=== PATIENT | female | born 1990 | race African-American/Black ===

== ENCOUNTER → 2020-03-17 | Outpatient (REF) | payer BC | LOC: M LAB REF 15:48 | PROVIDERS: ATTEND Nurse Practitioner Family | DX: R30.0 Dysuria (principal); Z11.3 Encounter for screening for infections with a predominantly sexual mode of transmission ==

== ENCOUNTER → 2020-04-30 | Outpatient (CLI) | payer BC | LOC: M LAB 13:21 | DX: Z30.09 Encounter for other general counseling and advice on contraception (principal) ==

== ENCOUNTER → 2020-05-07 | Outpatient (REF) | payer BC ==
[2020-05-07 14:02] LABS: HEMATOCRIT 38.6 % (36.0-47.0); HEMOGLOBIN 12.5 g/dl (12.0-15.5); MEAN CORPUSCULAR HGB CONC 32.4 g/dl (32.0-36.5); MEAN CORPUSCULAR VOLUME 86.5 fl (80.0-96.0); PLATELET COUNT, AUTOMATED 327 10^3/uL (150-450); RED BLOOD COUNT 4.46 10^6/uL (4.00-5.40); WHITE BLOOD COUNT 11.3 10^3/uL (4.0-10.0)
[2020-05-07 14:28] LABS: HCG, SERUM QUANTITATIVE 83 MIU/ML
[2020-05-07 15:27] LABS: PROGESTERONE 57.67 NG/ML
[2020-05-07 16:05] LABS: HEPATITIS C VIRUS ABY INDEX 0.2 INDEX (<0.8)
[2020-05-07 16:07] LABS: HIV 1&2 SCREEN CENTAUR NEGATIVE (NEGATIVE)
== END ==
LOC: M LAB REF 13:32
PROVIDERS: ATTEND Obstetrics & Gynecology
DX: Z32.01 Encounter for pregnancy test, result positive (principal); O36.80X0 Pregnancy with inconclusive fetal viability, not applicable or unspecified; Z3A.00 Weeks of gestation of pregnancy not specified

== ENCOUNTER → 2020-05-11 | Outpatient (REF) | payer BC | LOC: M LAB REF 16:13 | PROVIDERS: ATTEND Obstetrics & Gynecology | DX: O36.80X0 Pregnancy with inconclusive fetal viability, not applicable or unspecified (principal); Z3A.00 Weeks of gestation of pregnancy not specified ==

== ENCOUNTER → 2020-05-13 | Outpatient (CLI) | payer BC ==
--- NOTE | 2020-05-13 16:24 | REP ---
INDICATION: DATING/VIABILITY. COMPARISON: None. TECHNIQUE: Transabdominal and transvaginal scanning. FINDINGS: Transvaginal imaging demonstrates a small gestational sac in the endometrium. By mean sac size diameter of 3 mm, this would correspond with 4 week 5 day gestational. No embryonic pole or yolk sac is visible. A trace amount of free fluid is seen. No focal uterine mass is seen. Uterine dimensions are 8.8 x 4.7 x 4.6 cm. Right ovary measures 4.8 x 2.4 x 2.2 cm. Left ovarian dimensions are 5.4 x 3.2 x 3.9 cm. IMPRESSION: Gestational sac in the uterine endometrium and 4 weeks 5 days by mean sac size diameter. No embryonic pole or yolk sac is visible. viability cannot be confirmed. Clinical and or sonographic follow-up advised. <Electronically signed by Manuel Quevedo > 05/13/20 [id number]
== END ==
LOC: M WHC 15:22
PROVIDERS: ATTEND Obstetrics & Gynecology
DX: Z36.9 Encounter for antenatal screening, unspecified (principal); Z3A.01 Less than 8 weeks gestation of pregnancy

== ENCOUNTER → 2020-05-25 | Outpatient (CLI) | payer OTHER ==
--- NOTE | 2020-05-25 18:05 | REP ---
INDICATION: DATING AND VIABILITY COMPARISON: None. TECHNIQUE: Transabdominal 1st trimester obstetrical ultrasound with color Doppler evaluation. FINDINGS: Single live early intrauterine is appreciated. Gestational sac with yolk sac and pole identified. Slick-rump length of 7 mm corresponds to 6 weeks 4 days gestational age with estimated date of delivery 01/14/2021. heart rate equals 101 beats per minute. Large complex left ovarian cyst measuring 3.8 x 4.4 x 4.2 cm. IMPRESSION: Single live early intrauterine at 6 weeks 4 days gestational age. Complete anatomical assessment should be performed and 19-20 weeks. 4.4 cm complex left maternal ovarian cyst. <Electronically signed by Emory Sumner > 05/25/20 [id number]
== END ==
LOC: M WHC 15:26
PROVIDERS: ATTEND Obstetrics & Gynecology
DX: O36.80X0 Pregnancy with inconclusive fetal viability, not applicable or unspecified (principal); Z3A.01 Less than 8 weeks gestation of pregnancy

== ENCOUNTER → 2020-09-22 | Outpatient (CLI) | payer OTHER ==
--- NOTE | 2020-09-23 06:53 | REP ---
INDICATION: F/U ANATOMY COMPARISON: 05/25/2020 TECHNIQUE: Transabdominal obstetrical ultrasound with color Doppler evaluation. FINDINGS: Examination demonstrates a single live intrauterine in cephalic presentation. motion is identified by technologist. Placenta is noted anterior/right lateral and grade 1 without evidence for placenta previa or abruption. Amniotic fluid volume is normal. Cervix measures 3.4 cm in length and appears closed.. Gestational age by LMP and 1st U/S 23 weeks 4 days with LESLIE 01/15/2021. Gestational age by current measurements 23 weeks 4 days with LESLIE 01/15/2021. FHR equals 133 beats per minute. Estimated weight 590 grams (32ndpercentile). Anatomical assessment demonstrates normal structures including cranium, choroid plexus, cavum, cerebellum/posterior fossa, lungs, diaphragm, stomach, cord insertion/three-vessel cord, kidneys/bladder, spine, and extremities. IMPRESSION: Single live intrauterine in cephalic presentation demonstrating appropriate interval growth. Limited evaluation of the facial features and heart/ventricular outflow tracts due to positioning. Remainder of the anatomical assessment is complete and normal. <Electronically signed by Emory Sumner > 09/23/20 [id number]
== END ==
LOC: M WHC 12:25
PROVIDERS: ATTEND Advanced Practice Midwife
DX: Z34.02 Encounter for supervision of normal first pregnancy, second trimester (principal); Z3A.23 23 weeks gestation of pregnancy

== ENCOUNTER → 2020-10-20 | Outpatient (CLI) | payer OTHER ==
--- NOTE | 2020-10-20 16:34 | REP ---
INDICATION: F/U ANATOMY COMPARISON: 09/22/2020 TECHNIQUE: Transabdominal obstetrical ultrasound with color Doppler evaluation. FINDINGS: Examination demonstrates a single live intrauterine in cephalic presentation. motion is identified by technologist. Placenta is noted anterior and grade 1 without evidence for placenta previa or abruption. Amniotic fluid volume is normal. Cervix measures 3.3 cm in length and appears closed.. Selected gestational age: 27 weeks 4 days with LESLIE 01/15/2021. Gestational age by current measurements 27 weeks 4 days with LESLIE 01/15/2021. FHR equals 135 beats per minute. Estimated weight 1092 grams (36thpercentile). Anatomical assessment demonstrates normal structures including facial profile, orbits, nose/lips, four-chamber heart/ventricular outflow tracts. IMPRESSION: Single live intrauterine in cephalic presentation demonstrating appropriate interval growth. In conjunction with prior examination anatomical assessment is complete and normal. <Electronically signed by Emory Sumner > 10/20/20 [id number]
== END ==
LOC: M WHC 13:30
PROVIDERS: ATTEND Advanced Practice Midwife
DX: Z34.82 Encounter for supervision of other normal pregnancy, second trimester (principal)

== ENCOUNTER → 2020-10-27 | Outpatient (CLI) | payer OTHER, SELFPAY ==
[2020-10-27 13:12] LABS: HEMATOCRIT 36.3 % (36.0-47.0); HEMOGLOBIN 11.7 g/dl (12.0-15.5); MEAN CORPUSCULAR HEMOGLOBIN 28.5 pg (27.0-33.0); MEAN CORPUSCULAR HGB CONC 32.2 g/dl (32.0-36.5); MEAN CORPUSCULAR VOLUME 88.5 fl (80.0-96.0); WHITE BLOOD COUNT 11.4 10^3/uL (4.0-10.0)
== END ==
LOC: M LAB 11:00
PROVIDERS: ATTEND Advanced Practice Midwife
DX: Z34.02 Encounter for supervision of normal first pregnancy, second trimester (principal); Z3A.00 Weeks of gestation of pregnancy not specified

== ENCOUNTER → 2020-12-02 | Outpatient (REF) | payer OTHER | LOC: M PLALAB 09:38 | PROVIDERS: ATTEND Obstetrics & Gynecology | DX: Z34.93 Encounter for supervision of normal pregnancy, unspecified, third trimester (principal); Z53.9 Procedure and treatment not carried out, unspecified reason; Z3A.33 33 weeks gestation of pregnancy ==

== ENCOUNTER → 2020-12-02 | Outpatient (CLI) | payer OTHER | LOC: M PLALAB 10:28 | PROVIDERS: ATTEND Obstetrics & Gynecology | DX: Z34.93 Encounter for supervision of normal pregnancy, unspecified, third trimester (principal); Z3A.33 33 weeks gestation of pregnancy ==

== ENCOUNTER → 2020-12-17 | Outpatient (REF) | payer OTHER ==
[2020-12-17 16:08] LABS: PLATELET COUNT, AUTOMATED 102 10^3/uL (150-450)
== END ==
LOC: M PLALAB 15:09
PROVIDERS: ATTEND Obstetrics & Gynecology
DX: Z34.03 Encounter for supervision of normal first pregnancy, third trimester (principal); Z3A.33 33 weeks gestation of pregnancy

== ENCOUNTER → 2020-12-29 | Outpatient (CLI) | payer OTHER ==
[2020-12-29 16:09] LABS: HEMATOCRIT 33.4 % (36.0-47.0); HEMOGLOBIN 10.7 g/dl (12.0-15.5); MEAN CORPUSCULAR HEMOGLOBIN 28.3 pg (27.0-33.0); MEAN CORPUSCULAR VOLUME 88.4 fl (80.0-96.0); RED BLOOD COUNT 3.78 10^6/uL (4.00-5.40); WHITE BLOOD COUNT 10.4 10^3/uL (4.0-10.0)
[2020-12-29 16:18] LABS: PLTBLUE- EDTA FREE CALC 227 K/mm3 (172-450); PLTBLUE- EDTA FREE MACHINE 206 10^3/uL (172-450)
== END ==
LOC: M WUC 14:33
PROVIDERS: ATTEND Obstetrics & Gynecology
DX: O99.113 Other diseases of the blood and blood-forming organs and certain disorders involving the immune mechanism complicating pregnancy, third trimester (principal); D69.6 Thrombocytopenia, unspecified; Z3A.00 Weeks of gestation of pregnancy not specified

== ENCOUNTER 2021-01-13 14:07 | Inpatient (IN) | payer OTHER ==
[~2021-01-13] VITALS: Ht 165.1 cm; Wt 88.5 kg
[2021-01-13 14:31] VITALS: BP 131/76
[2021-01-13 15:16] LABS: HEMATOCRIT 36.7 % (36.0-47.0); HEMOGLOBIN 11.8 g/dl (12.0-15.5); MEAN CORPUSCULAR HEMOGLOBIN 28.2 pg (27.0-33.0); MEAN CORPUSCULAR HGB CONC 32.2 g/dl (32.0-36.5); MEAN CORPUSCULAR VOLUME 87.8 fl (80.0-96.0); PLATELET COUNT, AUTOMATED 219 10^3/uL (150-450); RED BLOOD COUNT 4.18 10^6/uL (4.00-5.40); WHITE BLOOD COUNT 10.1 10^3/uL (4.0-10.0)
[2021-01-13] MEDS ORDERED: PRENTAB9 PO (15:32)
[2021-01-13] MEDS ORDERED: ACET500P3 PO (15:32)
[2021-01-13] MEDS ORDERED: LIDOCAINE 1% MDV 20ML VIAL INFIL PRN (16:00)
[2021-01-13] MEDS ORDERED: OXYTOCIN INJ 10 UNITS/ML VIAL (J2590) IM PRN (16:00)
[2021-01-13] MEDS ORDERED: TRANEXAMIC ACID INJection 1,000 MG in NS 100 ML IV PRN (16:00)
[2021-01-13] MEDS ORDERED: OXYTOCIN DRIP 30 UNITS in IV 1 EA IV PRN ×4 (16:00)
[2021-01-13] MEDS ORDERED: METHYLERGONOVINE MALEATE 0.2 MG/ML VIAL (J2210) IM PRN (16:00)
[2021-01-13] MEDS ORDERED: CARBOPROST TROMETHAMINE 250 MCG/ML AMP IM PRN (16:00)
[2021-01-13] MEDS: miSOPROStol 50MCG 1/2 TABLET PO SCH ×2 (16:10→21:39)
[2021-01-13 16:11] VITALS: BP 135/82
[2021-01-13 17:18] VITALS: BP 155/85
--- NOTE | 2021-01-13 17:25 | HPE ---
HISTORY AND PHYSICAL DATE OF ADMISSION: 01/13/2021 HISTORY OF PRESENT ILLNESS: Debbie is a 29-year-old 1, para 0 at 39-5/7 weeks gestation, estimated date of confinement (EDC) of 01/15/2021 based on last menstrual period and confirmed by first trimester ultrasound. She presents to labor and delivery today following routine appointment where she was noticed to have oligohydramnios on ultrasound. She was then sent to labor and delivery for induction of labor. She denies vaginal bleeding, leakage of fluid and painful contractions. The fetus has been active. Her care was initiated at [facility] with a transfer to [facility] in the third trimester. Her course was complicated by COVID during in September. This was achieved with Clomid, as well as a late transfer of care, and then today's onset of oligohydramnios. HISTORY: [facility] . LABORATORIES: A positive, antibody screen negative. Rubella immune. VDRL nonreactive. Urine culture no growth. Hepatitis B surface antigen negative. Hepatitis C nonreactive. Human immunodeficiency virus (HIV) nonreactive. Gonorrhea and chlamydia negative. Gestational diabetic screening normal at 105 and her group B Streptococcus (GBS) is negative. PAST MEDICAL HISTORY: 1. Polycystic ovarian syndrome (PCOS). 2. Infertility. SURGERIES: Bunionectomy. FAMILY HISTORY: Liver disease and chronic obstructive pulmonary disease (COPD). SOCIAL HISTORY: The patient is single. Her partner is at bedside and supportive. She is a nonsmoker. She denies alcohol or drug use. She does have a history of chlamydia in the past. Denies history of abuse, physical, sexual and emotional. ALLERGIES: PENICILLIN. CURRENT MEDICATIONS: - vitamin PHYSICAL EXAMINATION: VITAL SIGNS: Temperature 98.1, pulse 82, respirations 18, blood pressure 141/76. GENERAL: Alert and oriented times three. She does not appear in any distress. HEART RATE: 135 with moderate variability, positive accelerations, negative decelerations. There is an occasional contraction noted. ABDOMEN: Gravid. Cephalic presentation. Estimated weight 7 pounds. STERILE VAGINAL EXAMINATION: 1 cm dilated, 50% effaced, -3 station, posterior and soft. No show with exam. ASSESSMENT: Intrauterine at 39-5/7 weeks, heart rate category one, oligohydramnios. PLAN: Admit the patient to labor and delivery. Routine laboratories. Out of bed ad-little. Regular diet at this time. Start misoprostol 50 mcg by mouth every four hours for cervical ripening. I did review risks, benefits and alternatives with the patient. She and her partner's questions have been answered. She has been verbally consented to emergency surgery and blood products, if they are necessary. I do anticipate cervical ripening. The patient is requesting epidural when she is uncomfortable for her labor.
[2021-01-13 18:19] VITALS: BP 138/91
[2021-01-13 19:36] VITALS: BP 138/80
[2021-01-13] MEDS ORDERED: PROMETHAZINE INJ 25 MG/ML VIAL (J2550) IV ONE (20:40)
[2021-01-13] MEDS ORDERED: BUTORPHANOL 2 MG/ML INJ (J0595) IV ONE (20:40)
[2021-01-13 22:29] VITALS: BP 140/74
[2021-01-14] VITALS (49 sets, daily range): BP systolic 110–188; BP diastolic 55–107
[2021-01-14] MEDS ORDERED: LR 1,000 ML IV SCH (01:00)
[2021-01-14] MEDS ORDERED: LR 1,000 ML IV ONE (01:00)
[2021-01-14] MEDS ORDERED: FENTANYL 2MCG/ML ROPIVACAINE 0.2% IN 0.9% NACL 100ML IVBAG As Ordered ONE (01:21)
[2021-01-14] MEDS ORDERED: REFRIGERATOR IV KEYS XX PRN (02:02)
[2021-01-14] MEDS ORDERED: ePHEDrine SULFATE 25 MG/5 ML(5MG/ML) SYRINGE IV PRN (02:02)
[2021-01-14] MEDS ORDERED: EPIDURAL COMMENT XX SCH (02:02)
[2021-01-14] MEDS ORDERED: EPIDURAL/PCA KEYS XX PRN (02:02)
[2021-01-14] MEDS ORDERED: diphenhydrAMINE 50MG/ML VIAL (J1200) IV PRN (02:02)
[2021-01-14] MEDS ORDERED: ONDANSETRON 4MG/2ML VIAL IV PRN ×2 (02:02→08:45)
[2021-01-14] MEDS ORDERED: NALOXONE INJ 0.4MG/1ML VIAL (J2310 PER 1MG) IV PRN (02:02)
[2021-01-14] MEDS ORDERED: LACTATED RINGER'S 1000 ML IV PRN (02:02)
[2021-01-14] MEDS: FENTANYL/ROPIVACAINE/NACL BAG 100 ML EPIDURAL SCH ×2 (03:02→08:00)
[2021-01-14] MEDS ORDERED: diphenhydrAMINE 50MG CAP PO ONE (07:15)
[2021-01-14] MEDS ORDERED: OXYTOCIN 30 UNITS IN 0.9% NaCl 500ML IV BAG (J2590) As Ordered ONE (08:08)
[2021-01-14] MEDS ORDERED: ACETAMINOPHEN 500 MG TAB PO PRN (08:45)
[2021-01-14] MEDS ORDERED: RHOGAM 300 MCG (1500 IU) INJ (J2790) IM SCH (08:45)
[2021-01-14] MEDS ORDERED: OXYTOCIN DRIP 30 UNITS in IV 1 EA IV ONE (08:45)
[2021-01-14] MEDS ORDERED: MEASLES,MUMPS,RUBELLA VACCINE INJ (MMR-II) (90707) SC SCH (08:45)
[2021-01-14] MEDS ORDERED: ACETAMINOPHEN TAB 650MG DOSE (2X325MG) PO PRN (08:45)
[2021-01-14] MEDS ORDERED: DOCUSATE SODIUM 100MG CAPSULE PO PRN (08:45)
[2021-01-14] MEDS ORDERED: IBUPROFEN 600MG TAB PO PRN (08:45)
[2021-01-14] MEDS ORDERED: METHYLERGONOVINE MALEATE 0.2 MG TAB PO PRN (08:45)
--- NOTE | 2021-01-14 09:17 | DNPDOC ---
[facility] Delivery Note Delivery Note DATE OF DELIVERY: January 14, 2021 PREDELIVERY DIAGNOSIS: 39-5/7 weeks' gestation, oligohydramnios, labor induction. POST DELIVERY DIAGNOSIS: Delivered. PROCEDURE: Spontaneous vaginal delivery. CLOTH LAMINATING SUPERVISOR: Dr. Alejandro Smith MD ANESTHESIA: Epidural. ESTIMATED BLOOD LOSS: 300 mL. FINDINGS: 6 pound 14 ounce male , Score 8/9. DELIVERY SUMMARY: Patient is a 30-year-old 1 now para 1 who was admitted to labor and delivery for induction due to oligohydramnios at term. She received misoprostol for multiple doses orally. She had an epidural placed. The her epidural had to be replaced when it was ineffective. She had rupture membranes. She progressed quickly. After 10 minutes second stage of labor she had spontaneous delivery of a 6 pound 14 ounce male . There was no nuchal cord. The shoulders delivered with ease. The infant was handed to the mother. The cord was doubly clamped and cut. Placenta delivered spontaneously and appeared to be intact. The patient received IV Pitocin immediately after delivery of the placenta. A first-degree perineal laceration repaired with single interrupted suture of 2-0 chromic in the usual fashion. Sponge and needle counts were correct. ALEJANDRO SMITH MD Jan 14, 2021 09:17
[2021-01-14] MEDS: PRENATAL VITAMINS CHEWABLE TABLET PO SCH (09:47)
[2021-01-14] MEDS: IBUPROFEN 800 MG TAB PO PRN ×2 (09:47→20:24)
[2021-01-14] MEDS: CALCIUM CARBONATE 500 MG CHEW U/D PO PRN (16:49)
[2021-01-15 05:59] VITALS: BP 129/60
--- NOTE | 2021-01-15 08:40 | IPNPDOC ---
Text Note Date of Service The patient was seen on 01/15/21. NOTE PP #1 Feels well. Tired. Adequate pain management. Voiding VSS, afebrile, normotensive Breasts soft, nipples intact Fundus firm, nontender, down 1 FB Lochia rubra light without odor Perineum intact PP #1 Routine care. Anticipate D/C in am VS,Fishbone, I+O VS, Fishbone, I+O Vital Signs Date Time Temp Pulse Resp B/P (MAP) Pulse Ox O2 Delivery O2 Flow Rate FiO2 01/15/21 05:59 97.3 75 18 129/60 (83) 01/14/21 18:01 99 Room Air I&O- Last 24 Hours up to 6 AM 01/15/21 05:59 Intake Total 1880 ml Output Total 850 ml Balance 1030 ml Park Torres CNM Jan 15, 2021 08:40
[2021-01-15] MEDS: PRENATAL VITAMINS CHEWABLE TABLET PO SCH (09:08)
[2021-01-15] MEDS: IBUPROFEN 800 MG TAB PO PRN ×2 (11:39→21:50)
[2021-01-15 18:00] VITALS: BP 132/81
[2021-01-15] MEDS: CALCIUM CARBONATE 500 MG CHEW U/D PO PRN (21:45)
[2021-01-16] MEDS: CALCIUM CARBONATE 500 MG CHEW U/D PO PRN (05:09)
[2021-01-16 06:00] VITALS: BP 137/91
[2021-01-16] MEDS: IBUPROFEN 800 MG TAB PO PRN (07:51)
[2021-01-16] MEDS: PRENATAL VITAMINS CHEWABLE TABLET PO SCH (08:57)
--- NOTE | 2021-01-16 10:06 | IPNPDOC ---
Progress Note Date of Service: Jan 16, 2021 Progress Note SUBJECT: Status post . She has been ambulating, voiding spontaneously without issue and tolerating regular diet. Lochia decreasing/minimal. Pain is well-controlled. Denies headache, visual changes, right upper quadrant pain, shortness breath or chest pain. OBJECTIVE: VITAL SIGNS: Within normal limits, afebrile. Alert and oriented times three. Abdomen: Fundus firm at U-2. Soft, NTTP. ASSESSMENT: Status post uncomplicated spontaneous vaginal delivery. Vitals within normal limits, afebrile, hemodynamically stable with no evidence of infection. PLAN: Discharge to home today. Tylenol and Motrin for pain. Routine instructions/precautions reviewed. Routine PP visit in 6 weeks in clinic. VS, I&O, 24H, Fishbone Vital Signs/I&O Vital Signs Date Time Temp Pulse Resp B/P (MAP) Pulse Ox O2 Delivery O2 Flow Rate FiO2 01/16/21 06:00 97.9 77 16 137/91 (106) 99 Room Air NOBLE HERNANDEZ DO Jan 16, 2021 10:06
== END 2021-01-16 12:05 | disposition home or self-care (01) | DRG 807 ==
LOC: M LDI 14:07 → M OBS 01-14 17:56
PROVIDERS: ADMIT Advanced Practice Midwife; ATTEND Specialist
PROC: 3E0P7GC Introduction of Other Therapeutic Substance into Female Reproductive, Via Natural or Artificial Opening (ICD-10-PCS; 2021-01-13)
PROC: 10E0XZZ Delivery of Products of Conception, External Approach (ICD-10-PCS; principal; 2021-01-14)
PROC: 0HQ9XZZ Repair Perineum Skin, External Approach (ICD-10-PCS; 2021-01-14)
DX: O41.03X0 Oligohydramnios, third trimester, not applicable or unspecified (principal); Z37.0 Single live birth; Z3A.39 39 weeks gestation of pregnancy; Z86.16 Personal history of COVID-19; E28.2 Polycystic ovarian syndrome; O99.284 Endocrine, nutritional and metabolic diseases complicating childbirth; O70.0 First degree perineal laceration during delivery